=== PATIENT | male | born 1990 ===

== ENCOUNTER 2017-04-10 18:10 | Emergency (ER) | payer MEDICAID, OTHER ==
[2017-04-10 18:23] VITALS: BP 110/70; PULSE 95; RESP 16; TEMP 98.5; O2SAT 98
[2017-04-10] MEDS ORDERED: cefTRIAXone (Rocephin) 250 mg Inj IM STA (19:02)
--- NOTE | 2017-04-10 19:05 | C.PDOC ---
History Of Present Illness 27 y/o male presents to ED with complaints of discharge and dysuria that began today. Patient states he has a white clear discharge from his genital. Patient denies fever, chills, abdominal pain, back pain or any other complaints at this time. Time Seen by Provider: 04/10/17 18:32 Chief Complaint (Nursing): Male Genitourinary History Per: Patient History/Exam Limitations: no limitations Onset/Duration Of Symptoms: Hrs Current Symptoms Are (Timing): Still Present Quality Of Discomfort: Burning Associated Symptoms: Urinary Symptoms. denies: Fever Past Medical History Reviewed: Historical Data, Nursing Documentation, Vital Signs Vital Signs: Last Vital Signs Temp 98.5 F 04/10/17 18:21 Pulse 95 H 04/10/17 18:21 Resp 16 04/10/17 18:21 BP 110/70 04/10/17 18:21 Pulse Ox 98 04/10/17 19:06 Family History: States: No Known Family Hx - Social History Hx Alcohol Use: No Hx Substance Use: No - Immunization History Hx Tetanus Toxoid Vaccination: No Hx Influenza Vaccination: No Hx Pneumococcal Vaccination: No Review Of Systems Except As Marked, All Systems Reviewed And Found Negative. Constitutional: Negative for: Fever, Chills Cardiovascular: Negative for: Chest Pain Respiratory: Negative for: Shortness of Breath Genitourinary: Positive for: Dysuria, Penile Discharge. Negative for: Hematuria Musculoskeletal: Negative for: Back Pain Skin: Negative for: Rash Neurological: Negative for: Weakness, Headache Physical Exam - Physical Exam Appears: Non-toxic, No Acute Distress Skin: Normal Color, Warm Head: Atraumatic, Normacephalic Throat: Normal Neck: Normal ROM Gastrointestinal/Abdominal: Soft, No Tenderness, No Guarding, No Rebound Extremity: Normal ROM, Capillary Refill (<2 seconds) Neurological/Psych: Oriented x3, Normal Motor, Normal Sensation, Normal Reflexes ED Course And Treatment O2 Sat by Pulse Oximetry: 98 (RA) Pulse Ox Interpretation: Normal Medical Decision Making Medical Decision Makin yo M presents to the ER for concern for possible STD exposure, pt is c/o clear d/c and dysuria. Patient medicated with rocephin 250 mg IM and zithromax 1 g PO. Urine of chlamydia and gonorrhea sent. Advised to f/u with the clinic in 2 days without fail. Return to the ER at any time for any new or worsening symptoms. Disposition - Disposition Referrals: [facility] [Outside] Disposition: HOME/ ROUTINE Disposition Time: 19:05 Condition: STABLE Instructions: Nonspecific Urethritis in Men (ED) Print Language: [place] - Clinical Impression Clinical Impression: Urethritis - PA / MEDICAL OFFICE ASSISTANT / Resident Statement MD/DO has reviewed & agrees with the documentation as recorded. - Scribe Statement The provider has reviewed the documentation as recorded by the Tierraibleslie Hardy All medical record entries made by the Anh were at my direction and personally dictated by me. I have reviewed the chart and agree that the record accurately reflects my personal performance of the history, physical exam, medical decision making, and the department course for this patient. I have also personally directed, reviewed, and agree with the discharge instructions and disposition.
== END 2017-04-10 19:33 | disposition home or self-care (01) ==
LOC: C.ER 18:10
DX: N34.2 Other urethritis (principal)
CPT/HCPCS: 87491; 87591; 96372; 99283; J0696